=== PATIENT | male | born 1980 | race Caucasian/White ===

== ENCOUNTER 2020-02-22 12:05 | Emergency (ER) | payer OTHER ==
[2020-02-22 12:29] VITALS: BP 141/76; PULSE 96; RESP 18; TEMP 98.1
[2020-02-22] MEDS ORDERED: SULFAMETHOX-TMP 800-160MG 1 EACH TAB PO STA (12:46)
--- NOTE | 2020-02-22 13:19 | XR ---
EXAMINATION TYPE: XR hand complete RT DATE OF EXAM: 02/22/2020 CLINICAL HISTORY: Retained foreign body. Technologist reports patient attempted to remove fluid splin ter second and third digit, now infected. TECHNIQUE: Frontal, lateral and oblique images of the right hand are obtained. COMPARISON: None. FINDINGS: There is no acute fracture/dislocation evident in the right hand. The joint spaces in the right hand appear within normal limits. There is degenerative change of the first metacarpophalangea l joint. No periosteal reaction or osseous erosion. The overlying soft tissue appears unremarkable. N o evidence of radiopaque or soft tissue lucency. IMPRESSION: No evidence of radiopaque foreign body or soft tissue abnormality.
--- NOTE | 2020-02-22 13:20 | XR ---
EXAMINATION TYPE: XR forearm LT DATE OF EXAM: 02/22/2020 CLINICAL HISTORY: Foreign body TECHNIQUE: Two views of the left forearm are obtained. COMPARISON: None. FINDINGS: There is no acute fracture or dislocation seen in the left radius or ulna. No evidence of osseous erosion or periosteal reaction. The elbow and wrist joints appear within normal limits. The overlying soft tissue appears within normal limits. No evidence of radiopaque foreign body. IMPRESSION: No acute osseous abnormality. No radiopaque foreign body.
--- NOTE | 2020-02-22 14:05 | ED ---
Skin/Abscess/FB HPI - General Chief complaint: Skin/Abscess/Foreign Body Stated complaint: infected splinter Source: patient Mode of arrival: ambulatory Limitations: no limitations - History of Present Illness Initial comments: Patient is a 39-year-old male past history of TBI who presents to the emergency room with reported retained splinter in his left arm and right index finger. Patient states that he brushed up against a wood pile. He did sustain multiple splinters for which he states he has been obsessed with trying to get from underneath his skin. He has caused a significant defect to the left dorsal forearm and right index finger. States that it has now become infected as he is getting some drainage from the site. Patient denies any fevers or chills. No nausea or vomiting. No other alleviating, precipitating or modifying factors - Related Data Home Medications Medication Instructions Recorded Confirmed Dextroamphetamine/Amphetamine 30 mg PO TID 02/22/20 02/22/20 [Adderall] Fluticasone Nasal [employer] [facility] [Flonase 2 spray EA NOSTRIL DAILY 02/22/20 02/22/20 Nasal [facility]] Losartan Potassium [Cozaar] 25 mg PO DAILY 02/22/20 02/22/20 Naproxen [Naprosyn] 500 mg PO BID PRN 02/22/20 02/22/20 QUEtiapine [SEROquel] 50 mg PO HS 02/22/20 02/22/20 Rosuvastatin Calcium [Crestor] 20 mg PO DAILY 02/22/20 02/22/20 SUMAtriptan succinate [Imitrex] 25 mg PO BID PRN 02/22/20 02/22/20 Testosterone Cypionate 300 mg IM MO 02/22/20 02/22/20 [Depo-Testosterone] Venlafaxine HCl ER [Effexor Xr] 75 mg PO DAILY 02/22/20 02/22/20 Venlafaxine HCl [Effexor XR] 150 mg PO DAILY 02/22/20 02/22/20 clonazePAM [KlonoPIN] 0.5 mg PO TID PRN 02/22/20 02/22/20 Previous Rx's Medication Instructions Recorded Cephalexin [Keflex] 500 mg PO Q6HR 1 Days #28 cap 02/22/20 Sulfamethox-Tmp 800-160Mg [Bactrim 2 tab PO Q12HR #28 tab 02/22/20 Ds] Allergies Allergy/AdvReac Type Severity Reaction Status Date / Time Penicillins Allergy Rash/Hives Verified 02/22/20 14:10 Review of Systems ROS Statement: Those systems with pertinent positive or pertinent negative responses have been documented in the HPI. ROS Other: All systems not noted in ROS Statement are negative. Past Medical History Additional Past Medical History / Comment(s): traumatic brain injury History of Any Multi-Drug Resistant Organisms: None Reported Past Surgical History: Tonsillectomy Past Psychological History: Anxiety Smoking Status: Current every day smoker Past Alcohol Use History: Occasional Past Drug Use History: Marijuana General Exam Limitations: no limitations Course Vital Signs 02/22/20 12:26 Temperature 98.1 F Pulse Rate 96 Respiratory 18 Rate Blood Pressure 141/76 O2 Sat by Pulse 97 Oximetry Medical Decision Making - Medical Decision Making Upon arrival the patient is placed in room 23. A thorough history and physical exam is performed. Patient does have a significant defect to the left posterior forearm. There is some signs of overlying healing. This wound is cultured. The patient is sent for an x-ray of his left forearm and right index finger. No radiopaque foreign bodies are seen. No gas formation. I did recommend that the patient stop manipulating the areas at this time. They do need time to heal. I do not see any identifiable foreign bodies visible at the surface. I informed the patient that they will not be extracted at this time. Patient will be placed on Bactrim and Keflex. He is given a dose of Bactrim in the emergency department. Patient must follow-up with his primary care doctor in 2-4 days. Inform him that he may require hospital admission if he does not have improvement in his wounds with antibiotics. We did place bacitracin to the site. They are to remain covered. The patient understood this. If he has any new or worsening symptoms he should return to the emergency room. Patient was discharged in stable condition Disposition Clinical Impression: Open wound, Cellulitis, Splinter Disposition: HOME SELF-CARE Condition: Stable Instructions (If sedation given, give patient instructions): Cellulitis (ED), Tdap and Td Vaccines for Adults (ED) Additional Instructions: Please follow-up with your primary care doctor in 2-4 days. Take the antibiotics as directed. Keep the area covered. Do not manipulate it. Return to the emergency room for any new or worsening symptoms Prescriptions: Sulfamethox-Tmp 800-160Mg [Bactrim Ds] 2 tab PO Q12HR #28 tab Cephalexin [Keflex] 500 mg PO Q6HR 1 Days #28 cap Is patient prescribed a controlled substance at d/c from ED?: No Referrals: Yaima Anthony DO [Primary Care Provider] - 1-2 days Time of Disposition: 14:05
[2020-02-22] MEDS ORDERED: BACITRACIN OINT 1 EACH PACKET TOPICAL ONE (14:09)
[2020-02-22] MEDS ORDERED: DIPH,PERTUS(ACELL)TETVAC-LF 0.5 ML VIAL IM ONE (14:18)
== END 2020-02-22 14:40 | disposition home or self-care (01) ==
LOC: EC 12:05
DX: S60.450A Superficial foreign body of right index finger, initial encounter (principal); S40.852A Superficial foreign body of left upper arm, initial encounter; L03.114 Cellulitis of left upper limb; S51.802A Unspecified open wound of left forearm, initial encounter; F41.9 Anxiety disorder, unspecified; F17.200 Nicotine dependence, unspecified, uncomplicated; Z23 Encounter for immunization; Z79.51 Long term (current) use of inhaled steroids; Z79.899 Other long term (current) drug therapy; Z88.0 Allergy status to penicillin; Z87.820 Personal history of traumatic brain injury; W45.8XXA Other foreign body or object entering through skin, initial encounter
CPT/HCPCS: 87070; 87075; 87205; 90471; 90715; 99283

== ENCOUNTER 2022-05-16 19:45 | Emergency (ER) | payer OTHER ==
[2022-05-16 19:56] VITALS: PULSE 95; TEMP 98
--- NOTE | 2022-05-16 20:56 | ED ---
General Adult HPI - General Chief complaint: Psychiatric Symptoms Stated complaint: Petition Time Seen by Provider: 05/16/22 19:57 Source: patient, RN notes reviewed, old records reviewed Mode of arrival: ambulatory Limitations: no limitations - History of Present Illness Initial comments: Patient is a 41-year-old male with past medical history for traumatic brain injury who presents emergency department after being petitioned for psychiatric evaluation. Patient was petitioned by his bilingual patient support caseworker. Patient states "Gurinder has sent threatening emails to myself and many others including saying he will hurt himself and "take every one out" in regards to his social security case." Patient denies any suicidal or homicidal ideations, attempts, plans. Denies any visual or auditory hallucinations. Denies any other acute complaints including chest pain, shortness breath, abdominal pain, nausea, vomiting. Denies any drug use. Presents for further evaluation at this time. He is cooperative. - Related Data Home Medications Medication Instructions Recorded Confirmed Dextroamphetamine/Amphetamine 30 mg PO TID 02/22/20 02/22/20 [Adderall] Fluticasone Nasal [place] [Flonase 2 spray EA NOSTRIL DAILY 02/22/20 02/22/20 Nasal [place]] Losartan Potassium [Cozaar] 25 mg PO DAILY 02/22/20 02/22/20 Naproxen [Naprosyn] 500 mg PO BID PRN 02/22/20 02/22/20 QUEtiapine [SEROquel] 50 mg PO HS 02/22/20 02/22/20 Rosuvastatin Calcium [Crestor] 20 mg PO DAILY 02/22/20 02/22/20 SUMAtriptan succinate [Imitrex] 25 mg PO BID PRN 02/22/20 02/22/20 Testosterone Cypionate 300 mg IM MO 02/22/20 02/22/20 [Depo-Testosterone] Venlafaxine HCl ER [Effexor Xr] 75 mg PO DAILY 02/22/20 02/22/20 Venlafaxine HCl [Effexor XR] 150 mg PO DAILY 02/22/20 02/22/20 clonazePAM [KlonoPIN] 0.5 mg PO TID PRN 02/22/20 02/22/20 Previous Rx's Medication Instructions Recorded Cephalexin [Keflex] 500 mg PO Q6HR 1 Days #28 cap 02/22/20 Sulfamethox-Tmp 800-160Mg [Bactrim 2 tab PO Q12HR #28 tab 02/22/20 Ds] Allergies Allergy/AdvReac Type Severity Reaction Status Date / Time Penicillins Allergy Rash/Hives Verified 05/16/22 19:56 Review of Systems ROS Statement: Those systems with pertinent positive or pertinent negative responses have been documented in the HPI. Review of Systems: CONST: Denies fever EYES: Denies blurry vision ENT: Denies nasal congestion C/V: Denies Chest pain RESP: Denies shortness of breath GI: Denies abdominal pain : Denies dysuria SKIN: Denies rash. MSK: Denies joint pain. NEURO: Denies headache PSYCH: Denies suicidal and homicidal ideations/plans/attempts. Denies visual or auditory hallucinations. ROS Other: All systems not noted in ROS Statement are negative. Past Medical History Additional Past Medical History / Comment(s): traumatic brain injury History of Any Multi-Drug Resistant Organisms: None Reported Past Surgical History: Tonsillectomy Past Psychological History: Anxiety Smoking Status: Current every day smoker Past Alcohol Use History: Occasional Past Drug Use History: Marijuana General Exam - General Exam Comments Initial Comments: General: Appears in no acute distress. HEAD: Normal with no signs of head trauma. EYES: PERRLA, EOMI, conjunctiva normal, no discharge. Pupils 3 mm and equal bilaterally. ENT: Hearing grossly intact, normal oropharynx. RESPIRATORY: Clear breath sounds bilaterally. No wheezes, rales, or rhonchi. C/V: Regular rate and rhythm. S1 and S2 auscultated, no edema, peripheral pulses 2+ and intact throughout ABD: Abd is soft, nontender, nondistended EXT: Normal range of motion, no obvious deformity SKIN: No rashes or lesions observed on exposed skin. NEURO: Alert and oriented 4. Limitations: no limitations Course Vital Signs 05/16/22 05/16/22 19:54 20:56 Temperature 98.0 F Pulse Rate 95 95 Respiratory 20 18 Rate Blood Pressure 146/94 138/80 O2 Sat by Pulse 96 100 Oximetry Medical Decision Making - Medical Decision Making Was pt. sent in by a medical professional or institution (, PA, SERVICE PERSON, urgent care, hospital, or fdc...) When possible be specific @ -No Did you speak to anyone other than the patient for history (EMS, parent, family, police, friend...)? What history was obtained from this source @ -No Did you review nursing and triage notes (agree or disagree)? Why? @ -I reviewed and agree with nursing and triage notes Were old charts reviewed (outside hosp., previous admission, EMS record, old EKG, old radiological studies, urgent care reports/EKG's, fdc records)? Report findings @ -Yes, outside petition was reviewed. Differential Diagnosis (chest pain, altered mental status, abdominal pain women, abdominal pain men, vaginal bleeding, weakness, fever, dyspnea, syncope, headache, dizziness, GI bleed, back pain, seizure, CVA, palpatations, mental health)? @ -not applicable EKG interpreted by me (3pts min.). @ -Not done X-rays interpreted by me (1pt min.). @ -None done CT interpreted by me (1pt min.). @ -None done U/S interpreted by me (1pt. min.). @ -None done What testing was considered but not performed or refused? (CT, X-rays, U/S, labs)? Why? @ -None What meds were considered but not given or refused? Why? @ -None Did you discuss the management of the patient with other professionals (professionals i.e. , PA, SERVICE PERSON, lab, RT, psych nurse, social services, nutritional services director, teacher, chief risk officer, bilingual patient support caseworker)? Give summary @ -EPS was notified. Pending psychiatric evaluation.I spoke with Umu after evaluation who believes the patient is stable for discharge home after speaking with psychiatry. I'm in agreement with this plan. Was smoking cessation discussed for >3mins.? @ -No Was critical care preformed (if so, how long)? @ -No Were there social determinants of health that impacted care today? How? (Homelessness, low income, unemployed, alcoholism, drug addiction, transportation, low edu. Level, literacy, decrease access to med. care, halfway, rehab)? @ -No Was there de-escalation of care discussed even if they declined (Discuss DNR or withdrawal of care, Hospice)? DNR status @ -No What co-morbidities impacted this encounter? (DM, HTN, Smoking, COPD, CAD, Cancer, CVA, ARF, Chemo, Hep., AIDS, mental health diagnosis, sleep apnea, morbid obesity)? @ -None Was patient admitted / discharged? Hospital course, mention meds given and route, prescriptions, significant lab abnormalities, going to OR and other pertinent info. @ -Based on the patient's presentation and physical exam, I do believe here for psychiatric evaluation. Was placed in green scrubs. Sitter was ordered. BAT is 0. UDS is pending. Vital signs within acceptable limits. Patient is cooperative. At this time, patient is medically cleared for evaluation by psychiatry. Disposition is pending psychiatric evaluation. EPS was notified. EPS evaluate the patient. I spoke with Umu of EPS who cleared the patient for discharge home. He'll follow-up with his therapist and bilingual patient support caseworker. I was in agreement with this plan. Patient was discharged home in good condition. Strict return precautions were discussed. Undiagnosed new problem with uncertain prognosis? @ -No Drug Therapy requiring intensive monitoring for toxicity (Heparin, Nitro, Insulin, Cardizem)? @ -No Were any procedures done? @ -No Diagnosis/symptom? @ -Encounter for psychiatric evaluation Acute, or Chronic, or Acute on Chronic? @ -Acute on chronic Uncomplicated (without systemic symptoms) or Complicated (systemic symptoms)? @ -Uncomplicated Side effects of treatment? @ -No Exacerbation, Progression, or Severe Exacerbation? @ -No Poses a threat to life or bodily function? How? (Chest pain, [place], [place], pneumonia, PE, COPD, DKA, ARF, appy, cholecystitis, CVA, Diverticulitis, Homicidal, Suicidal, threat to staff... and all critical care pts) @ -No. Patient is cooperative. Disposition Clinical Impression: Encounter for psychiatric assessment Disposition: HOME SELF-CARE Condition: Good Additional Instructions: follow discharge instructions/safety plan. Is patient prescribed a controlled substance at d/c from ED?: No Referrals: None,Stated [Primary Care Provider] - 1-2 days Time of Disposition: 21:00
[2022-05-16 21:13] VITALS: BP 138/80; RESP 18
== END 2022-05-16 21:30 | disposition home or self-care (01) ==
LOC: EC 19:45
DX: Z00.8 Encounter for other general examination (principal); F41.9 Anxiety disorder, unspecified; F17.200 Nicotine dependence, unspecified, uncomplicated; F12.90 Cannabis use, unspecified, uncomplicated; Z88.0 Allergy status to penicillin; Z79.899 Other long term (current) drug therapy
CPT/HCPCS: 82075; 99285

== ENCOUNTER 2022-09-16 10:16 | Emergency (ER) | payer MEDICARE, OTHER ==
[2022-09-16 10:27] VITALS: TEMP 98.7
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
--- NOTE | 2022-09-16 10:47 | XR ---
EXAMINATION TYPE: XR chest 2V DATE OF EXAM: 09/16/2022 COMPARISON: None HISTORY: 42 year-old male shortness of breath TECHNIQUE: PA and lateral views FINDINGS: Heart normal size. Aorta and pulmonary vasculature are within normal limits. Some strandy areas of at electasis are present. No consolidation or pleural effusion. Advanced degenerative change left glenoh umeral joint. IMPRESSION: No acute cardiopulmonary process.
[2022-09-16 11:09] LABS: Basophils % (A) 0 %; Eosinophils % (A) 0 %; HCT 45.2 % (39.0-53.0); HGB 15.2 gm/dL (13.0-17.5); Lymphocytes # (A) 0.9 k/uL (1.0-4.8); Lymphocytes % (A) 9 %; MCH 31.5 pg (25.0-35.0); MCHC 33.6 g/dL (31.0-37.0); MCV 93.7 fL (80.0-100.0); Mean Platelet Volume 8.3; Monocytes # (A) 0.6 k/uL (0-1.0); Monocytes % (A) 6 %; Neutrophils # (A) 8.6 k/uL (1.3-7.7); Neutrophils % (A) 83 %; Platelet Count 191 k/uL (150-450); RBC 4.82 m/uL (4.30-5.90); WBC 10.3 k/uL (3.8-10.6)
[2022-09-16 11:18] LABS: VBG PH 7.31 (7.31-7.41)
[2022-09-16 11:20] LABS: ALT 20 U/L (4-49); AST 36 U/L (17-59); African American GFR (CKD) 72 (>60 ml/min/1.73 sqM); Albumin 4.3 g/dL (3.5-5.0); Alcohol <10 mg/dL; Alkaline Phosphatase 94 U/L (38-126); Anion Gap 11 mmol/L; Blood Urea Nitrogen 16 mg/dL (9-20); Calcium 8.9 mg/dL (8.4-10.2); Carbon Dioxide 26 mmol/L (22-30); Chloride 101 mmol/L (98-107); Glucose 70 mg/dL (74-99); Non-African American GFR(CKD) 62 (>60 ml/min/1.73 sqM); Potassium 3.6 mmol/L (3.5-5.1); Sodium 138 mmol/L (137-145); Total Bilirubin 0.7 mg/dL (0.2-1.3)
[2022-09-16] MEDS ORDERED: SODIUM CHLORIDE 0.9% 1,000 ML IV ONE ×2 (13:15→15:47)
[2022-09-16] MEDS ORDERED: KETOROLAC 15 MG/ML 1 ML VIAL IVP STA (14:32)
--- NOTE | 2022-09-16 14:57 | XR ---
EXAMINATION TYPE: XR hand complete RT DATE OF EXAM: 09/16/2022 COMPARISON: NONE HISTORY: 42 year-old male right hand pain TECHNIQUE: 3 views FINDINGS: The mildly comminuted, nondisplaced fracture of the fourth distal phalangeal tuft. No other acute fracture, subluxation, or dislocation is seen. IMPRESSION: Mildly comminuted, nondisplaced fracture of the fourth distal phalangeal tuft.
[2022-09-16 21:00] VITALS: BP 156/89; PULSE 86; RESP 16
== END 2022-09-16 21:00 | disposition home or self-care (01) ==
LOC: EC 10:16
DX: S62.664A Nondisplaced fracture of distal phalanx of right ring finger, initial encounter for closed fracture (principal); T22.10XA Burn of first degree of shoulder and upper limb, except wrist and hand, unspecified site, initial encounter; F32.A Depression, unspecified; F41.9 Anxiety disorder, unspecified; F17.200 Nicotine dependence, unspecified, uncomplicated; F12.90 Cannabis use, unspecified, uncomplicated; Z20.822 Contact with and (suspected) exposure to COVID-19; Z88.0 Allergy status to penicillin; Z79.899 Other long term (current) drug therapy; X00.0XXA Exposure to flames in uncontrolled fire in building or structure, initial encounter
CPT/HCPCS: 82075; 36415; 93005; 80053; 82375; 82803; 85025; 87635; 73130; 71046; 99285; 96374; 96361 ×6; G0480; J1885; 80320